=== PATIENT | female | born 2005 | race Caucasian/White ===

== ENCOUNTER 2024-10-24 19:35 | Emergency (ER) | payer OTHER ==
[2024-10-24 20:03] VITALS: RESP 17; TEMP 98.4; O2SAT 100
[2024-10-24 20:22] LABS: HCG URINE TEST NEGATIVE (NEGATIVE)
--- NOTE | 2024-10-24 20:32 | ERPHSYRPT ---
- History of Present Illness Time Seen by Provider: 10/24/24 20:32 Source: patient Exam Limitations: no limitations Patient Subjective Stated Complaint: lower back pain bilat x3 days, cough since Sep 26 Triage Nursing Assessment: Pt ambulated into ER with sig other, walking with a limp. Pt c/o bilat lower back pain x3 days that radiates to abd area and legs. Pt denies any injury or fall but does remember carrying a heavy laundry basket full of canned goods 3 days ago. Pt denies any burning or pain with urination. Pt describes the back pain as constant, throbbing and burning. Pt c/o cough that she has had since Sep 26 and has taken meds for but is not getting any better. Pt is unsure of . Physician History: The patient presents with back pain. They have been experiencing back pain located above the hips for three days, which is worsening and now affects the area underneath the armpit on the opp osite side. The pain is described as shooting up when walking and sometimes causes numbness in the right knee. No history of back issues is noted. They were treated in ED at the end of September for which they were previously treated with antibiotics, muscle relaxers, and cough syrup. They took a muscle relaxer approximately five to six hours ago. Current symptoms include pain under the armpit on the opposite side, which has been worsening over three days. They report increased frequency of urination but deny any burning sensation during urination. There is no history of kidney stones and no abdominal pain. Timing/Duration: day(s) (3) Method of Injury: unknown Quality: sharp, stabbing Back Pain Location: lumbar spine, paraspinous muscles Back Pain Radiation: lower legs (right) Severity of Pain-Max: severe Severity of Pain-Current: severe Modifying Factors: Improves With: nothing. Worsens With: movement Associated Symptoms: numbness in legs/feet, lower back pain, muscle spasms, No fever, No chills, No urinary incontinence, No loss of bowel control, No nausea, No vomiting, No problems urinating, No weakness, No sensory/motor loss Previous symptoms: no prior history Allergies/Adverse Reactions: No Known Drug Allergies Allergy (Unverified 10/24/24 20:04) Hx Tetanus, Diphtheria Vaccination/Date Given: Yes Hx Influenza Vaccination/Date Given: No Hx Pneumococcal Vaccination/Date Given: No Travel Risk - International Travel Have you traveled outside of the country in past 3 weeks: No - Emerging Infectious Disease Are you exhibiting symptoms associated with any current EIDs: Yes Symptoms: Cough: New Onset, Headaches/Body Aches/, Joint Pain - Review of Systems All Other Systems: Reviewed and Negative - Past Medical History Pertinent Past Medical History: No - Past Surgical History Past Surgical History: No - Female History Hx Last Menstrual Period: 10/08/24 Hx Now: No - Social History Smoking Status: Current every day smoker How long have you smoked: 2 yrs Exposure to second hand smoke: No Drug Use: none - Social Determinants of Health Will the patient participate in the screening: Yes Do you worry about a steady place to live?: No Do you have any problems with any of the following?: No known problems In the past 12 months,have you had to go without utilities?: No Transportation Issues: No Has anyone in your support network made you feel unsafe?: No Have you or anyone in your house had to go without enough: No - Nursing Vital Signs Nursing Vital Signs: Initial Vital Signs Temperature 98.4 F 10/24/24 20:02 Pulse Rate 126 H 10/24/24 20:02 Respiratory Rate 17 10/24/24 20:02 Blood Pressure 109/64 10/24/24 20:02 O2 Sat by Pulse Oximetry 100 10/24/24 20:02 Pain Scale Pain Intensity [Back] 10 Pain Intensity 7 - Physical Exam General Appearance: mild distress, anxiety Respiratory Exam: airway intact, No respiratory distress Cardiovascular Exam: tachycardia Gastrointestinal Exam: soft, tenderness (suprapubic), No guarding, No rebound Back Exam: CVA tenderness (bilateral), vertebral tenderness, muscle spasm, point tenderness Neurologic Exam: alert, oriented x 3, cooperative Skin Exam: normal color, warm, dry, No rash SpO2 Interpretation: normal SpO2: 100 O2 Delivery: Room Air - Course Nursing assessment & vital signs reviewed: Yes Ordered Tests: Active Orders 24 hr Category Date Time Status LUMBAR COMPLETE (MIN 4 VIEWS) Stat Exams 10/24/24 20:39 Taken CBC W DIFF Stat Lab 10/24/24 20:48 Completed CMP Stat Lab 10/24/24 20:48 Completed CULTURE,URINE Stat Lab 10/24/24 20:17 Received HCG QUALITATIVE, URINE Stat Lab 10/24/24 20:17 Completed UA W/RFX UR CULTURE Stat Lab 10/24/24 20:17 Completed Medication Summary Discontinued Medications Generic Name Dose Route Start Last Admin Trade Name Marivel PRN Reason Stop Dose Admin Cephalexin HCl 500 mg 10/24/24 21:01 10/24/24 21:07 Cephalexin Mh500 Mg Capsule PO 10/24/24 21:02 500 mg STAT ONE Administration Cephalexin HCl Confirm 10/24/24 21:03 Cephalexin Mh500 Mg Capsule Administered 10/24/24 21:04 Dose 500 mg .ROUTE .STK-MED ONE Cyclobenzaprine HCl 10 mg 10/24/24 20:38 10/24/24 20:48 Cyclobenzaprine Hcl 10 Mg Tablet PO 10/24/24 20:39 10 mg STAT ONE Administration Cyclobenzaprine HCl Confirm 10/24/24 20:45 Cyclobenzaprine Hcl 10 Mg Tablet Administered 10/24/24 20:46 Dose 10 mg .ROUTE .STK-MED ONE Ketorolac Tromethamine 30 mg 10/24/24 20:38 10/24/24 20:49 Ketorolac Tromethamine 30 Mg/Ml Inj IM 10/24/24 20:39 30 mg STAT ONE Administration Ketorolac Tromethamine Confirm 10/24/24 20:45 Ketorolac Tromethamine 30 Mg/Ml Inj Administered 10/24/24 20:46 Dose 30 mg .ROUTE .STK-MED ONE Lab/Rad Data: Laboratory Result Diagrams 10/24/24 20:48 10/24/24 20:48 Laboratory Results 10/24/24 10/24/24 10/24/24 Range/Units 20:48 20:48 20:25 WBC 10.7 H (3.98-10.04) x10^3/uL RBC 4.39 (3.93-5.22) x10^6/uL Hgb 13.3 (11.2-15.7) g/dL Hct 39.0 (34.1-44.9) % MCV 88.8 (79.4-94.8) fL MCH 30.3 (25.6-32.2) pg MCHC 34.1 (32.2-35.5) g/dL RDW 12.0 (11.7-14.4) % Plt Count 231 (182-369) x10^3/uL MPV 8.6 L (9.4-12.3) fL Gran % 84.7 H (34.0-71.1) % Immature Gran % (Auto) 0.4 (0.001-0.429) % Nucleat RBC Rel Count 0.0 (0.00-0.2) % Eos # (Auto) 0.06 (0.04-0.36) x10^3/uL Immature Gran # (Auto) 0.04 H (0.001-0.031) x10^3u/L Absolute Lymphs (auto) 0.81 L (1.18-3.74) x10^3/uL Absolute Monos (auto) 0.69 (0.24-0.86) x10^3/uL Absolute Nucleated RBC 0.00 (0.00-0.012) x10^3u/L Lymphocytes % 7.6 L (19.3-51.7) % Monocytes % 6.5 (4.7-12.5) % Eosinophils % 0.6 L (0.7-5.8) % Basophils % 0.2 (0.1-1.2) % Absolute Granulocytes 9.03 H (1.56-6.13) x10^3/uL Basophils # 0.02 (0.01-0.08) x10^3/uL Sodium 134 L (135-145) mmol/L Potassium 3.8 (3.5-5.1) mmol/L Chloride 102 (98-107) mmol/L Carbon Dioxide 23 (22-30) mmol/L Anion Gap 13.0 (5-15) MEQ/L BUN 10 (7-17) mg/dL Creatinine 0.91 (0.52-1.04) mg/dL Estimated GFR 92.6 ML/MIN Glucose 93 (74-106) mg/dL Calcium 9.3 (8.4-10.2) mg/dL Total Bilirubin 1.20 (0.2-1.3) mg/dL AST 29 (14-36) U/L ALT 19 (0-35) U/L Alkaline Phosphatase 123 (38-126) U/L Serum Total Protein 7.2 (6.3-8.2) g/dL Albumin 4.3 (3.5-5.0) g/dL Urine Color (Yellow) Urine Appearance (Clear) Urine pH (4.6-8.0) Ur Specific [place] (1.005-1.030) Urine Protein (Negative) Urine Glucose (UA) (Negative) mg/dL Urine Ketones (Negative) Urine Blood (Negative) Urine Nitrite (Negative) Urine Bilirubin (Negative) Urine Urobilinogen (0.2) mg/dL Ur Leukocyte Esterase (Negative) U Hyaline Cast (Auto) (0-2) /LPF Urine Microscopic RBC (0-5) /HPF Urine Microscopic WBC (0-5) /HPF Ur Epithelial Cells (None Seen) /HPF Urine Bacteria (None Seen) /HPF Urine Mucus (NEGATIVE) /HPF Urine Culture Reflexed (NO) Urine HCG, Qual (NEGATIVE) Influenza Type A Ag NEGATIVE (NEGATIVE) Influenza Type B Ag NEGATIVE (NEGATIVE) RSV (PCR) NEGATIVE (NEGATIVE) SARS-CoV-2 (PCR) NEGATIVE (NEGATIVE) 10/24/24 10/24/24 Range/Units 20:17 20:17 WBC (3.98-10.04) x10^3/uL RBC (3.93-5.22) x10^6/uL Hgb (11.2-15.7) g/dL Hct (34.1-44.9) % MCV (79.4-94.8) fL MCH (25.6-32.2) pg MCHC (32.2-35.5) g/dL RDW (11.7-14.4) % Plt Count (182-369) x10^3/uL MPV (9.4-12.3) fL Gran % (34.0-71.1) % Immature Gran % (Auto) (0.001-0.429) % Nucleat RBC Rel Count (0.00-0.2) % Eos # (Auto) (0.04-0.36) x10^3/uL Immature Gran # (Auto) (0.001-0.031) x10^3u/L Absolute Lymphs (auto) (1.18-3.74) x10^3/uL Absolute Monos (auto) (0.24-0.86) x10^3/uL Absolute Nucleated RBC (0.00-0.012) x10^3u/L Lymphocytes % (19.3-51.7) % Monocytes % (4.7-12.5) % Eosinophils % (0.7-5.8) % Basophils % (0.1-1.2) % Absolute Granulocytes (1.56-6.13) x10^3/uL Basophils # (0.01-0.08) x10^3/uL Sodium (135-145) mmol/L Potassium (3.5-5.1) mmol/L Chloride (98-107) mmol/L Carbon Dioxide (22-30) mmol/L Anion Gap (5-15) MEQ/L BUN (7-17) mg/dL Creatinine (0.52-1.04) mg/dL Estimated GFR ML/MIN Glucose (74-106) mg/dL Calcium (8.4-10.2) mg/dL Total Bilirubin (0.2-1.3) mg/dL AST (14-36) U/L ALT (0-35) U/L Alkaline Phosphatase (38-126) U/L Serum Total Protein (6.3-8.2) g/dL Albumin (3.5-5.0) g/dL Urine Color Yellow (Yellow) Urine Appearance Cloudy A (Clear) Urine pH 7.0 (4.6-8.0) Ur Specific [place] 1.015 (1.005-1.030) Urine Protein 30 (Negative) Urine Glucose (UA) Negative (Negative) mg/dL Urine Ketones Negative (Negative) Urine Blood Negative (Negative) Urine Nitrite Positive A (Negative) Urine Bilirubin Negative (Negative) Urine Urobilinogen 1.0 A (0.2) mg/dL Ur Leukocyte Esterase Moderate A (Negative) U Hyaline Cast (Auto) NONE SEEN (0-2) /LPF Urine Microscopic RBC 0-2 (0-5) /HPF Urine Microscopic WBC 51-100 A (0-5) /HPF Ur Epithelial Cells Moderate A (None Seen) /HPF Urine Bacteria Many A (None Seen) /HPF Urine Mucus Rare A (NEGATIVE) /HPF Urine Culture Reflexed YES (NO) Urine HCG, Qual NEGATIVE (NEGATIVE) Influenza Type A Ag (NEGATIVE) Influenza Type B Ag (NEGATIVE) RSV (PCR) (NEGATIVE) SARS-CoV-2 (PCR) (NEGATIVE) - Progress Progress: improved Progress Note: 10/24/24 21:02 Back Pain Acute back pain above the hips, radiating to the right leg with numbness and tingling. Differential includes musculoskeletal strain or radiculopathy. Consideration of nephrolithiasis due to increased urinary frequency, but no history of nephrolithiasis and no abdominal pain reported. - Order urinalysis - Administer analgesics - Order imaging of the back if indicated by lab results Increased Urinary Frequency Increased urinary frequency without dysuria. Differential includes urinary tract infection or other urinary pathology. Previous cystitis treated with antibi otics. - Evaluate urinalysis results for signs of infection or hematuria UA shows UTI, patient refuses IV so Keflex 500mg given. 10/24/24 21:32 Pain improved, will DC home on Keflex 500mg BID x 7 days, return if fever or worsening pain. Counseled pt/family regarding: lab results, diagnosis, need for follow-up, rad results Medical Desision Making - Diagnostic Testing Diagnostic test were ordered, analyzed, and reviewed by me: Yes Radiological Interpretation: Interpreted by me - Risk of complications The pt has a mod risk of morbidity or mortality based on: Need for prescription drug management - Departure Departure Disposition: Home Clinical Impression: UTI (urinary tract infection), Back pain Condition: Good Critical Care Time: No Referrals: IDANIA MONTEJO NP [Primary Care Provider] - Follow up/PCP as directed Instructions: Urinary tract infections in adults Prescriptions: Cephalexin Mh 500 mg [Keflex 500 mg] 500 mg PO BID 7 Days #13 cap
[2024-10-24 20:41] LABS: Appearance Cloudy (Clear); Bacteria Many /HPF (None Seen); Bilirubin Negative (Negative); Blood Negative (Negative); Epithelial Cells Moderate /HPF (None Seen); Glucose, Urine Negative (Negative); Hyaline Casts NONE SEEN /LPF (0-2); Ketones Negative (Negative); Leukocyte Esterase Moderate (Negative); Mucus Rare /HPF (NEGATIVE); Nitrite Positive (Negative); Protein,Urine Dip 30 (Negative); RBC 0-2 /HPF (0-5); Specific Gravity 1.015 (1.005-1.030); WBC 51-100 /HPF (0-5)
[2024-10-24] MEDS ORDERED: Cyclobenzaprine 10 MG ONE (20:45)
[2024-10-24] MEDS ORDERED: TORAdol 30 mg Injection ONE (20:45)
[2024-10-24] MEDS: Cyclobenzaprine 10 MG PO ONE (20:48)
[2024-10-24] MEDS: TORAdol 30 mg Injection IM ONE (20:49)
[2024-10-24 20:51] LABS: Absolute Neutrophil Ct (ANC) 9.03 x10^3/uL (1.56-6.13); BASOPHIL % 0.2 % (0.1-1.2); Basophil (Absolute #) 0.02 x10^3/uL (0.01-0.08); Eosinophil % 0.6 % (0.7-5.8); Eosinophil (Absolute #) 0.06 x10^3/uL (0.04-0.36); Hemoglobin 13.3 g/dL (11.2-15.7); IMMATURE GRAN # 0.04 x10^3u/L (0.001-0.031); IMMATURE GRAN % 0.4 % (0.001-0.429); Lymphocyte (Absolute #) 0.81 x10^3/uL (1.18-3.74); Lymphocytes % 7.6 % (19.3-51.7); Mean Cell Volume 88.8 fL (79.4-94.8); Mean Corpuscular Hemoglobin 30.3 pg (25.6-32.2); Mean Corpuscular Hgb Concent. 34.1 g/dL (32.2-35.5); Mean Platelet Volume 8.6 fL (9.4-12.3); Monocyte (Absolute #) 0.69 x10^3/uL (0.24-0.86); Monocytes % 6.5 % (4.7-12.5); Neutrophil % 84.7 % (34.0-71.1); Platelet Count 231 x10^3/uL (182-369); Red Blood Count 4.39 x10^6/uL (3.93-5.22); White Blood Count 10.7 x10^3/uL (3.98-10.04)
[2024-10-24] MEDS ORDERED: KEFLEX 500 MG ONE (21:03)
[2024-10-24 21:04] LABS: INFLUENZA A NEGATIVE (NEGATIVE); INFLUENZA B NEGATIVE (NEGATIVE); RESPIRATORY SYNCTIAL VIRUS NEGATIVE (NEGATIVE); SARS-CoV-2 Xpert Express NEGATIVE (NEGATIVE)
[2024-10-24 21:06] LABS: ALBUMIN 4.3 g/dL (3.5-5.0); BILIRUBIN,TOTAL 1.2 mg/dL (0.2-1.3); Calcium 9.3 mg/dL (8.4-10.2); Creatinine 1 0.91 mg/dL (0.52-1.04); EST GLOMERULAR FILTRATION RATE 92.6 ML/MIN; Potassium 3.8 mmol/L (3.5-5.1); Total Protein 7.2 g/dL (6.3-8.2)
[2024-10-24] MEDS: KEFLEX 500 MG PO ONE (21:07)
[2024-10-24 21:48] VITALS: BP 119/76; PULSE 114
--- NOTE | 2024-10-25 08:58 | XRAY ---
Indication: Back pain. Comparison: None 5 view lumbar spine demonstrates 5 lumbar segments in normal alignment with vertebral body heights/disc spaces maintained. Mild diffuse colonic fecal debris. No other bony, articular, or soft tissue abnormalities.
== END 2024-10-24 20:52 | disposition home or self-care (01) ==
LOC: ED 19:35
DX: N39.0 Urinary tract infection, site not specified (principal); M54.9 Dorsalgia, unspecified; R35.0 Frequency of micturition; Z72.0 Tobacco use; Z79.899 Other long term (current) drug therapy
CPT/HCPCS: 0241U; 36415; 72110; 80053; 81001; 81025; 85025; 87077; 87086; 87186; 96372; 99284; J1885; A9270-GY

== ENCOUNTER 2025-02-17 04:34 | Emergency (ER) | payer OTHER ==
[2025-02-17 05:04] VITALS: TEMP 96.8; O2SAT 100
[2025-02-17 05:15] LABS: HCG URINE TEST NEGATIVE (NEGATIVE)
[2025-02-17 05:17] VITALS: PULSE 82
[2025-02-17 05:22] LABS: Appearance Clear (Clear); Bacteria Many /HPF (None Seen); Bilirubin Negative (Negative); Blood Negative (Negative); Epithelial Cells Many /HPF (None Seen); Glucose, Urine Negative (Negative); Hyaline Casts NONE SEEN /LPF (0-2); Ketones Negative (Negative); Leukocyte Esterase Negative (Negative); Nitrite Negative (Negative); Ph 5.5 (4.6-8.0); Protein,Urine Dip Negative (Negative); RBC 0-2 /HPF (0-5); Specific Gravity >=1.030 (1.005-1.030)
--- NOTE | 2025-02-17 05:22 | ERPHSYRPT ---
- History of Present Illness Time Seen by Provider: 02/17/25 04:46 Source: patient Exam Limitations: no limitations Patient Subjective Stated Complaint: pt reports pain with urination, pelvic pain, blood in the urine, and low back pain beginning yesterday, pt reports history of UTI Triage Nursing Assessment: pt is aox3, pupils perrl, resps easy and non labored, cap refill < 3 sec, radial pulses strong and equal, pt skin pink warm dry. pt with tenderness to the lower abdomen/pelvis. Physician History: 19 years old presented in the ER with complaints of mild dysuria, increased frequency this morning and noticed mild blood bright red in urine with some suprapubic and low back discomfort. No fever or chills reported. No flank pain. No nausea or vomiting. Does have a history of recurrent UTIs. Allergies/Adverse Reactions: No Known Drug Allergies Allergy (Verified 02/17/25 05:04) Home Medications: Sertraline HCl 50 mg [Zoloft 50 mg Tablet] 100 mg PO DAILY 02/17/25 [History] Hx Tetanus, Diphtheria Vaccination/Date Given: Yes Hx Influenza Vaccination/Date Given: No Hx Pneumococcal Vaccination/Date Given: No Travel Risk - International Travel Have you traveled outside of the country in past 3 weeks: No - Emerging Infectious Disease Are you exhibiting symptoms associated with any current EIDs: No Symptoms: Cough: New Onset, Headaches/Body Aches/, Joint Pain - Review of Systems Constitutional: No Symptoms Ears, Nose, & Throat: No Symptoms Respiratory: No Symptoms Cardiac: No Symptoms Genitourinary Symptoms: Dysuria, Frequency, Hematuria Musculoskeletal: Back Pain Skin: No Symptoms Neurological: No Symptoms Endocrine: No Symptoms Hematologic/Lymphatic: No Symptoms - Past Medical History Pertinent Past Medical History: Yes Female Reproductive Disorders: Other Other Medical History: PCOS, recurrent UTI - Past Surgical History Past Surgical History: No - Female History Hx Last Menstrual Period: 01/18/25 Hx Now: No - Social History Smoking Status: Former smoker How long have you smoked: 2 yrs Exposure to second hand smoke: No Drug Use: none - Social Determinants of Health Will the patient participate in the screening: Yes Do you worry about a steady place to live?: No Do you have any problems with any of the following?: No known problems In the past 12 months,have you had to go without utilities?: No Transportation Issues: No Has anyone in your support network made you feel unsafe?: No Have you or anyone in your house had to go w/o enough food: No - Nursing Vital Signs Nursing Vital Signs: Initial Vital Signs Temperature 96.8 F 02/17/25 04:39 Pulse Rate 92 H 02/17/25 04:39 Respiratory Rate 18 02/17/25 04:39 Blood Pressure 130/84 02/17/25 04:39 O2 Sat by Pulse Oximetry 100 02/17/25 04:39 Pain Scale Pain Intensity 7 - Physical Exam General Appearance: no apparent distress Eye Exam: PERRL/EOMI Neck Exam: normal inspection, full range of motion Respiratory Exam: normal breath sounds, lungs clear Cardiovascular Exam: regular rate/rhythm, normal heart sounds Gastrointestinal/Abdomen Exam: soft, normal bowel sounds, tenderness (Mild suprapubic tenderness. No right or left lower quadrant tenderness) Back Exam: normal inspection, normal range of motion, No CVA tenderness Extremity Exam: normal inspection, normal range of motion Neurologic Exam: alert, oriented x 3, cooperative SpO2 Interpretation: normal SpO2: 100 O2 Delivery: Room Air Ordered Tests: Active Orders 24 hr Category Date Time Status HCG QUALITATIVE, URINE Stat Lab 02/17/25 05:05 Completed UA W/RFX UR CULTURE Stat Lab 02/17/25 05:04 Received Lab/Rad Data: Laboratory Results 02/17/25 Range/Units 05:05 Urine HCG, Qual NEGATIVE (NEGATIVE) - Departure Departure Disposition: Home Clinical Impression: Acute UTI (urinary tract infection) Condition: Stable Critical Care Time: No Referrals: IDANIA MONTEJO NP [Primary Care Provider, [facility]] - Follow up with PCP 1 day Instructions: Urinary Tract Infection, Adult (DC) Prescriptions: Cephalexin Mh 500 mg [Keflex 500 mg] 500 mg PO TID #21 cap
[2025-02-17] MEDS ORDERED: KEFLEX 500 MG ONE (05:23)
[2025-02-17] MEDS: KEFLEX 500 MG PO ONE (05:25)
[2025-02-17 06:02] VITALS: BP 121/84; RESP 18
== END 2025-02-17 06:10 | disposition home or self-care (01) ==
LOC: ED 04:34
DX: N39.0 Urinary tract infection, site not specified (principal); R30.0 Dysuria; R31.9 Hematuria, unspecified; R10.2 Pelvic and perineal pain; Z79.899 Other long term (current) drug therapy
CPT/HCPCS: 81001; 81025; 99283; A9270-GY